=== PATIENT | female | born 1985 | race Caucasian/White ===

== ENCOUNTER 2016-12-19 05:12 | Day surgery (SDC) | payer MEDICAID ==
[2016-12-17 15:08] LABS: BASOPHILS 0.3 % (0.0-2.0); EOSINOPHILS 1.4 % (0-7); HEMATOCRIT 38.2 % (36.0-48.0); HEMOGLOBIN 12.5 g/dL (12-16); IMMATURE GRANULOCYTES 0.2 % (0-5); MCH 27.8 pg (26.0-34.0); MCHC 32.7 g/dL (31.0-37.0); MCV 84.9 fL (80.0-100.0); MEAN PLATELET VOLUME 11.4 fL (7.4-10.4); MONOCYTES 5.4 % (2-11); NEUTROPHILS 61.7 % (40-80); PLATELET COUNT 304 10x3/uL (130-400); RDW 13.5 % (11.5-14.5); WBC 10.9 10x3/uL (4.8-10.8)
[~2016-12-19] VITALS: Ht 154.9 cm; Wt 113.4 kg
[~2016-12-19 05:12] MED LIST: FOLATE0.4 MG PO; KEPPRA1000 MG PO; PRENATAL COMPLE1 TAB PO; PROTONIX20 MG PO
[2016-12-19 09:18] VITALS: BP 136/23; Ht 154.9 cm; Wt 113.4 kg
[2016-12-19 09:25] LABS: HCG URINE NEGATIVE (NEGATIVE)
--- NOTE | 2016-12-19 14:38 | NUR ---
IT WAS NOTED THAT PATIENT WAS ALLERGIC TO LATEX AND RED RUBBER CATHETER USED FOR IN AND OUT CATH, DR RAGSDALE NOTIFIED AND ORDER 25MG BENADRYL IV, THIS ALL TOOK PLACE IN RECOVERY ROOM, PATIENT NOT HAVING ANY SYMPTOMS, DAVONTE.
--- NOTE | 2016-12-19 15:39 | NUR ---
1525-PT DOING WELL DENIES ANY N/V REQUESTING A TRAY. FULL LIQUID TRAY GIVEN WILL CONTINUE TO MONITOR
--- NOTE | 2016-12-19 15:48 | NUR ---
1545-REPORT TO ARABELLA GOSS
--- NOTE | 2016-12-19 17:41 | NUR ---
1600 IV DC WITH CATHER TIP INTACT
--- NOTE | 2016-12-19 17:58 | NUR ---
1445 BACK FROM TUBAL LIGATION VERY SLEEPY RESP NONLABORED SAT 90 PUT ON 2L N/C AND SAT UP TO 93 %. BANDAID X2 TO ABDOMEN NO BLEEDING.DENIES PAIN OR NAUSEA.
--- NOTE | 2016-12-19 18:16 | NUR ---
1515 REPORT TO ERICH LUCIANO NO SIGNS OF ALLERGIC REACTION NOTED.
== END 2016-12-19 16:15 | disposition home or self-care (01) ==
LOC: D.OPS 05:12 → D.PAN 10:30 → D.OPS 16:15
PROVIDERS: Obstetrics & Gynecology
DX: Z30.2 Encounter for sterilization (principal); G40.909 Epilepsy, unspecified, not intractable, without status epilepticus; E28.2 Polycystic ovarian syndrome; R87.610 Atypical squamous cells of undetermined significance on cytologic smear of cervix (ASC-US)

== ENCOUNTER 2017-06-03 03:31 | Emergency (ER) | payer MEDICAID ==
[2016-12-19 09:18] VITALS: BMI 47.3
== END 2017-06-03 05:14 | disposition home or self-care (01) ==
LOC: D.ER 03:31
DX: R56.9 Unspecified convulsions (principal); E11.9 Type 2 diabetes mellitus without complications; E28.2 Polycystic ovarian syndrome; R11.0 Nausea

== ENCOUNTER 2017-11-15 12:34 | Emergency (ER) | payer MEDICAID ==
[2016-12-19 09:18] VITALS: BMI 47.3
[2017-11-15 13:24] LABS: ALBUMIN 3.7 g/dL (3.4-5.0); ALKALINE PHOSPHATASE 111 U/L (46-116); ALT (SGPT) 67 U/L (10-68); AMYLASE - SERUM 64 U/L (25-115); BILIRUBIN - TOTAL 0.42 mg/dL (0.2-1.3); CALC OSMOLALITY 279 mosm/kg (275-300); CALCIUM 9.4 mg/dL (8.5-10.1); CARBON DIOXIDE 25.9 mmol/L (21.0-32.0); CHLORIDE - SERUM 103 mmol/L (98-107); CREATININE - SERUM 0.9 mg/dL (0.6-1.3); GLUCOSE 113 mg/dL (74-106); LIPASE 110 U/L (73-393); POTASSIUM - SERUM 4.2 mmol/L (3.5-5.1); PROTEIN - SERUM 8.3 g/dL (6.4-8.2); SODIUM 139 mmol/L (136-145); UREA NITROGEN 16 mg/dL (7-18); eGFR NON AFRICAN AMERICAN 78 mL/min (90-120)
[2017-11-15 13:25] LABS: BASOPHILS 0.4 % (0-2); EOSINOPHILS 2.1 % (0-7); HEMATOCRIT 43.6 % (36.0-48.0); HEMOGLOBIN 14.2 g/dL (12-16); IMMATURE GRANULOCYTES 0.3 % (0-5); LYMPHOCYTES 34.5 % (15-50); MCH 28.2 pg (26.0-34.0); MCHC 32.6 g/dL (31.0-37.0); MCV 86.5 fL (80.0-100.0); MEAN PLATELET VOLUME 11.2 fL (7.4-10.4); MONOCYTES 6.6 % (2-11); NEUTROPHILS 56.1 % (40-80); PLATELET COUNT 298 10x3/uL (130-400); RBC 5.04 10x6/uL (4.00-5.40); RDW 13.1 % (11.5-14.5); WBC 9.9 10x3/uL (4.8-10.8)
[2017-11-15 13:32] LABS: APPEARANCE HAZY (CLEAR); BILIRUBIN NEGATIVE (NEGATIVE); COLOR YELLOW (YELLOW); GLUCOSE NEGATIVE (NEGATIVE); KETONE NEGATIVE (NEGATIVE); NITRITE NEGATIVE (NEGATIVE); PH 5.5 (5.0-6.0); PROTEIN NEGATIVE (NEGATIVE); SPECIFIC GRAVITY 1.015 (1.005-1.020); UROBILINOGEN NORMAL (NORMAL)
[2017-11-15 13:33] LABS: HCG URINE NEGATIVE (NEGATIVE)
== END 2017-11-15 15:53 | disposition home or self-care (01) ==
LOC: D.ER 12:34
PROVIDERS: Family Medicine
DX: R11.10 Vomiting, unspecified (principal); E11.9 Type 2 diabetes mellitus without complications; E28.2 Polycystic ovarian syndrome

== ENCOUNTER 2017-11-17 07:47 | Day surgery (SDC) | payer MEDICAID ==
[~2017-11-17] VITALS: Ht 152.4 cm; Wt 127.3 kg
--- NOTE | ~2017-11-17 | OP ---
PATIENT NAME: BETTY CAMPBELL MEDICAL RECORD: [id number] :87 [facility] SURGEON: RADHA CANALES DO DATE OF OPERATION: 11/17/2017 PROCEDURE: EGD with biopsies. INDICATIONS FOR PROCEDURE: Heartburn and generalized abdominal pain. SCOPE: R17 video gastroscope. MEDICATIONS: Propofol 400 mg IV per anesthesia. ESTIMATED BLOOD LOSS: Minimal. COMPLICATIONS: None. FINDINGS: Informed consent was given. The patient was made comfortable with the above medication. After reaching an adequate level of sedation by slow IV push, the patient was placed on her left side. The endoscope was then advanced under direct visualization through the mouth to the second portion of the duodenum. The upper, middle, and lower thirds of the esophagus appeared normal. At the GE junction, there was evidence of LA class A reflux-induced esophagitis. The endoscope was advanced beyond the GE junction into the stomach and retroflexed to view the cardia and fundus. There was a small sliding hiatal hernia present. In the fundus and body of the stomach, there were a few benign appearing fundic gland type polyps. A biopsy was taken of a single polyp to submit for histopathology. The distal body and antrum of the stomach appeared normal. Random biopsies were taken to submit for histopathology and to rule out H. pylori. The endoscope was advanced beyond the pylorus into the duodenum where the bulb and second portion of the duodenum appeared normal. The scope was then withdrawn from the patient. The patient tolerated the procedure well and there were no complications. IMPRESSION: 1. LA class A reflux induced esophagitis, biopsies pending. 2. Few benign-appearing fundic gland type gastric polyps, biopsies pending. 3. Small sliding hiatal hernia. 4. Otherwise, normal appearing stomach with biopsies pending. Also, normal duodenum. PLAN AND RECOMMENDATIONS: 1. Discharge home when recovery parameters are met. 2. Follow up biopsy specimen results. 3. Continue current medications consisting of pantoprazole 20 mg b.i.d. 4. Proceed with colonoscopy as scheduled. 5. GERD precautions. TRANSINT:[id number] Voice Confirmation ID: [id number] DOCUMENT ID: [id number] OPERATIVE REPORT [id number] BETTY CAMPBELL RADHA CANALES DO at 1616 CC: [id number] DICTATION DATE: 11/17/17 0951 [facility] DIRECTOR: 11/17/17 1113 [facility] 11/17/17 [place] [id number] [facility] [place] [address]
[2017-11-17] MEDS ORDERED: SINEQUAN100 MG PO (08:14)
[2017-11-17 08:27] VITALS: BP 129/69; Ht 152.4 cm; Wt 127.3 kg
[2017-11-17 08:51] LABS: HEMOGLOBIN 13.4 g/dL (12-16); MCHC 33.5 g/dL (31.0-37.0); MEAN PLATELET VOLUME 10.9 fL (7.4-10.4); RBC 4.78 10x6/uL (4.00-5.40); RDW 12.7 % (11.5-14.5); WBC 9.5 10x3/uL (4.8-10.8)
[2017-11-17 09:01] LABS: MCV 83.7 fL (80.0-100.0)
== END 2017-11-17 10:54 | disposition home or self-care (01) ==
LOC: D.OPS 07:47
PROVIDERS: Anesthesiology
DX: K21.0 Gastro-esophageal reflux disease with esophagitis (principal); K44.9 Diaphragmatic hernia without obstruction or gangrene; K31.7 Polyp of stomach and duodenum; R12 Heartburn; R10.84 Generalized abdominal pain; Z01.812 Encounter for preprocedural laboratory examination

== ENCOUNTER 2017-11-19 11:24 | Day surgery (SDC) | payer MEDICAID ==
[~2017-11-19] VITALS: Ht 152.4 cm; Wt 130.0 kg
--- NOTE | ~2017-11-19 | OP ---
PATIENT NAME: BETTY CAMPBELL MEDICAL RECORD: [id number] :87 LOCATION:D[facility] ADMISSION DATE: SURGEON: RADHA CANALES DO DATE OF OPERATION: 11/19/2017 PROCEDURE: Colonoscopy. INDICATIONS FOR PROCEDURE: Diarrhea and generalized abdominal pain. SCOPE: Olympus video pediatric colonoscope. MEDICATIONS: Propofol 420 mg IV per anesthesia. WITHDRAWAL TIME: 6 minutes. ESTIMATED BLOOD LOSS: Zero. COMPLICATIONS: None. FINDINGS: Informed consent was given. The patient was made comfortable with the above medication. After reaching an adequate level of sedation by slow IV push, the patient was placed on her left side. A digital rectal examination was performed and was normal. The endoscope was then advanced under direct visualization through the rectum to the terminal ileum. The endoscope was slowly withdrawn and the mucosa was carefully examined. There were no polyps visualized on today examination. There were a few small mouth diverticula which were scattered throughout the entire colon. The prep quality was good. Retroflexion was performed in the rectum with normal appearing rectal wall. Random biopsies were taken throughout the colon to rule out microscopic colitis and stool was collected to submit for infectious purposes. The endoscope was withdrawn from the patient. The patient tolerated the procedure well and there were no complications. IMPRESSION: 1. Mild diverticulosis scattered throughout the entire colon. 2. Likely, irritable bowel syndrome, which is diarrhea predominant as well as bile salt induced diarrhea. PLAN AND RECOMMENDATIONS: 1. Discharge home when recovery parameters are met. 2. Follow up biopsy specimen results. 3. Continue current medications. 4. We will add cholestyramine 4 g p.o. b.i.d. and dicyclomine 20 mg b.i.d. p.r.n. abdominal pain or cramping to her medication regimen for the diarrhea. 5. Notify the clinic if symptoms worsen or fail to improve with this regimen. 6. Recall colonoscopy at age 52 for colorectal cancer screening purposes. TRANSINT:[id number] Voice Confirmation ID: [id number] DOCUMENT ID: [id number] OPERATIVE REPORT [id number] BETTY CAMPBELL RADHA CANALES DO at 0833 CC: [id number] DICTATION DATE: 11/19/17 1540 [employer] GAUGER: 11/19/17 1625 [facility] 11/19/17 [facility] [address] [facility] [address]
[~2017-11-19 11:24] MED LIST changes: +SINEQUAN100 MG PO
[2017-11-19 12:21] LABS: HEMATOCRIT 41.2 % (36.0-48.0); HEMOGLOBIN 13.6 g/dL (12-16); MCH 28.3 pg (26.0-34.0); MCV 85.8 fL (80.0-100.0); MEAN PLATELET VOLUME 11.3 fL (7.4-10.4); RBC 4.8 10x6/uL (4.00-5.40); RDW 12.8 % (11.5-14.5); WBC 8.8 10x3/uL (4.8-10.8)
[2017-11-19 12:35] VITALS: Ht 152.4 cm; Wt 130.0 kg
== END 2017-11-19 16:45 | disposition home or self-care (01) ==
LOC: D.OPS 11:24
PROVIDERS: Anesthesiology
DX: K57.30 Diverticulosis of large intestine without perforation or abscess without bleeding (principal); K52.9 Noninfective gastroenteritis and colitis, unspecified; Z01.812 Encounter for preprocedural laboratory examination

== ENCOUNTER → 2018-08-04 12:51 | Outpatient (CLI) | payer MEDICAID ==
[2017-11-19 12:35] VITALS: BMI 55.9
== END | disposition home or self-care (01) ==
LOC: D.LAB 12:51
PROVIDERS: Nurse Practitioner
DX: R05 Cough (principal)

== ENCOUNTER 2018-12-18 02:31 | Emergency (ER) | payer MEDICAID ==
[~2018-12-18] VITALS: Ht 152.4 cm; Wt 127.3 kg
[2018-12-18 02:33] VITALS: Ht 152.4 cm; Wt 127.3 kg
[2018-12-18] MEDS ORDERED: CLARITIN 10 MG10 MG PO (02:36)
[2018-12-18] MEDS ORDERED: LAMICTAL100 MG PO (02:37)
[2018-12-18] MEDS ORDERED: PROZAC40 MG (02:37)
[2018-12-18] MEDS ORDERED: MIRAPEX0.5 MG PO (02:37)
[2018-12-18] MEDS ORDERED: PEPCID40 MG PO (02:37)
[2018-12-18 03:22] LABS: HEMOGLOBIN 12.8 g/dL (12-16); LYMPHOCYTES 17.1 % (15-50); MCH 28.3 pg (26.0-34.0); MCHC 33.7 g/dL (31.0-37.0); MCV 84.1 fL (80.0-100.0); MEAN PLATELET VOLUME 10.9 fL (7.4-10.4); NEUTROPHILS 79.6 % (40-80); PLATELET COUNT 252 10x3/uL (130-400); RBC 4.52 10x6/uL (4.00-5.40); RDW 12.8 % (11.5-14.5); WBC 11.7 10x3/uL (4.8-10.8)
[2018-12-18 03:35] LABS: ALBUMIN 3.6 g/dL (3.4-5.0); ANION GAP 16.6 mmol/L (8-16); BILIRUBIN - TOTAL 0.4 mg/dL (0.2-1.3); CALCIUM 8.4 mg/dL (8.5-10.1); CARBON DIOXIDE 26.9 mmol/L (21.0-32.0); MAGNESIUM - SERUM 2.2 mg/dL (1.8-2.4); POTASSIUM - SERUM 3.5 mmol/L (3.5-5.1)
[2018-12-18 05:50] VITALS: BP 99/64
[2018-12-21 13:13] LABS: LEVETIRACETAM 11.7 ug/mL (10.0-40.0)
[2018-12-22 08:18] LABS: LAMOTRIGINE (LAMICTAL) 1.3 ug/mL (2.0-20.0)
== END 2018-12-18 05:50 | disposition home or self-care (01) ==
LOC: D.ER 02:31
PROVIDERS: Family Medicine
DX: G40.909 Epilepsy, unspecified, not intractable, without status epilepticus (principal); F10.129 Alcohol abuse with intoxication, unspecified